=== PATIENT | male | born 1955 | race Caucasian/White ===

== ENCOUNTER 2020-09-27 01:47 | Emergency (ER) | payer MEDICARE, MEDICAID ==
[2020-09-27 02:36] LABS: #Basophils 0.1 thou/uL (0.0-0.2); #Lymphocytes 2.2 thou/uL (1.20-3.40); #Monocytes 0.8 thou/uL (0.11-0.59); #Neutrophils 2.9 thou/uL (1.40-6.50); %Basophils 1.6 % (0.0-1.0); %Lymphocytes 36.7 % (21.0-51.0); %Monocytes 12.9 % (0.0-10.0); %Neutrophils 48.8 % (42.0-75.0); Hemoglobin 13.5 g/dL (14.0-18.0); Mean Corpuscular HGB CONC 31.9 g/dL (32.0-36.0); Mean Corpuscular Hemoglobin 31.1 pg (27.0-31.0); Mean Corpuscular Volume 97.4 fL (78.0-98.0); Mean Platelet Volume 11.6 fL (7.4-10.4); Platelet Count 196 thou/uL (130-400); RBC Distribution Width 12.4 % (11.5-14.5); Red Blood Cell (RBC) Count 4.35 mill/uL (4.70-6.10)
[2020-09-27 03:04] LABS: Bilirubin Negative (Negative); Blood, Urine Small (Negative); Glucose, Urine (Dipstick) Negative (Negative); Ketone, Urine Negative (Negative); Leukocyte Negative (Negative); Nitrite Positive (Negative); Protein, Urine (Dipstick) Negative (Neg-Trace); Specific Gravity, Urine 1.025 (1.005-1.030)
[2020-09-27 03:14] LABS: Clarity Hazy (Clear)
[2020-09-27 03:23] LABS: Bacteria/HPF 3+ HPF (None Seen); Squamous Epithelial 0-3 HPF (0-3); Transitional Epithelial 0-3 HPF (None Seen)
[2020-09-27 03:25] LABS: Anion Gap 17 mmol/L (10-20); BUN (Urea Nitrogen) 22 mg/dL (8.4-25.7); Calc. Creatinine Clearance 0 mL/min (70-130); Carbon Dioxide 26 mmol/L (23-31); Chloride 106 mmol/L (98-107); Potassium 3.7 mmol/L (3.5-5.1); Sodium 145 mmol/L (136-145)
[2020-09-27 03:26] LABS: ALT (SGPT) 95 U/L (8-55); AST (SGOT) 90 U/L (5-34); Albumin 2.9 g/dL (3.4-4.8); Alkaline Phosphatase 113 U/L (40-110); Bilirubin, Total 0.4 mg/dL (0.2-1.2); Calcium 8.6 mg/dL (7.8-10.44); Glucose 80 mg/dL (80-115)
[2020-09-27 03:28] LABS: Globulin 3.3 g/dL (2.4-3.5); Protein, Total 6.2 g/dL (5.8-8.1)
[2020-09-27] MEDS ORDERED: Cefepime 2 GM VIAL ONE (03:28)
[2020-09-27] MEDS ORDERED: Sodium Chloride 0.9% 100 ML BAG ONE (06:48)
[2020-09-27] MEDS ORDERED: Sodium Chloride 0.9% 1,000 ML BAG ONE (06:48)
== END 2020-09-27 08:30 ==
LOC: MADERS 01:47
DX: E86.0 Dehydration (principal); N39.0 Urinary tract infection, site not specified; K21.9 Gastro-esophageal reflux disease without esophagitis; E87.6 Hypokalemia; G30.9 Alzheimer's disease, unspecified; F02.81 Dementia in other diseases classified elsewhere, unspecified severity, with behavioral disturbance; G93.40 Encephalopathy, unspecified; Z86.73 Personal history of transient ischemic attack (TIA), and cerebral infarction without residual deficits; Z79.82 Long term (current) use of aspirin; Z79.899 Other long term (current) drug therapy
CPT/HCPCS: 51701; 71045; 80053; 81003; 81015; 83605; 84484; 85025; 87040; 87077; 87086; 87186; 93005; 96365; J0692; J3490; J7050

== ENCOUNTER 2020-09-30 23:47 | Emergency (ER) | payer MEDICARE, MEDICAID ==
[2020-10-01] MEDS ORDERED: Cefepime 2 GM VIAL ONE (00:11)
[2020-10-01] MEDS ORDERED: Sodium Chloride 0.9% 100 ML ONE (00:11)
[2020-10-01 00:46] LABS: #Lymphocytes 1.8 thou/uL (1.20-3.40); #Monocytes 0.3 thou/uL (0.11-0.59); #Neutrophils 2.6 thou/uL (1.40-6.50); %Lymphocytes 38.2 % (21.0-51.0); %Monocytes 6.7 % (0.0-10.0); %Neutrophils 54.1 % (42.0-75.0); Hemoglobin 12.2 g/dL (14.0-18.0); Mean Corpuscular HGB CONC 33.5 g/dL (32.0-36.0); Mean Corpuscular Hemoglobin 31.9 pg (27.0-31.0); Mean Corpuscular Volume 95.1 fL (78.0-98.0); Mean Platelet Volume 11.5 fL (7.4-10.4); Platelet Count 138 thou/uL (130-400); RBC Distribution Width 12.2 % (11.5-14.5); Red Blood Cell (RBC) Count 3.83 mill/uL (4.70-6.10); White Blood Cell (WBC) Count 4.7 thou/uL (4.8-10.8)
[2020-10-01 00:59] LABS: ALT (SGPT) 110 U/L (8-55); AST (SGOT) 108 U/L (5-34); Albumin 2.4 g/dL (3.4-4.8); Alkaline Phosphatase 96 U/L (40-110); Anion Gap 11 mmol/L (10-20); BUN (Urea Nitrogen) 17 mg/dL (8.4-25.7); Bilirubin, Total 0.3 mg/dL (0.2-1.2); Calc. Creatinine Clearance 0 mL/min (70-130); Calcium 7.3 mg/dL (7.8-10.44); Carbon Dioxide 24 mmol/L (23-31); Chloride 110 mmol/L (98-107); Globulin 2.8 g/dL (2.4-3.5); Glucose 86 mg/dL (80-115); Potassium 3.3 mmol/L (3.5-5.1); Protein, Total 5.2 g/dL (5.8-8.1); Sodium 142 mmol/L (136-145)
[2020-10-01 01:00] LABS: CRP (Inflammatory) 1.13 mg/dL (= or < 0.5)
[2020-10-01] MEDS ORDERED: Sodium Chloride 0.9% 250 ML 250 ML ONE (01:18)
[2020-10-01 01:54] LABS: Bilirubin Negative (Negative); Blood, Urine Trace (Negative); Clarity Clear (Clear); Glucose, Urine (Dipstick) Negative (Negative); Ketone, Urine Negative (Negative); Leukocyte Negative (Negative); Nitrite Negative (Negative); Protein, Urine (Dipstick) Negative (Neg-Trace); Specific Gravity, Urine 1.025 (1.005-1.030); Urobilinogen 0.2 mg/dL (Less than 2)
[2020-10-01 01:55] LABS: RBC/HPF 0-3 HPF (0-3); Squamous Epithelial 0-3 HPF (0-3); WBC/HPF 0-3 HPF (0-3)
== END 2020-10-01 01:33 | disposition short-term general hospital (02) ==
LOC: MADERS 23:47
DX: A41.89 Other specified sepsis (principal); U07.1 COVID-19; R65.21 Severe sepsis with septic shock; J12.82 Pneumonia due to coronavirus disease 2019; N39.0 Urinary tract infection, site not specified; E87.6 Hypokalemia; K21.9 Gastro-esophageal reflux disease without esophagitis; I10 Essential (primary) hypertension; G30.9 Alzheimer's disease, unspecified; G93.40 Encephalopathy, unspecified; I42.9 Cardiomyopathy, unspecified; Z86.73 Personal history of transient ischemic attack (TIA), and cerebral infarction without residual deficits
CPT/HCPCS: 36415; 51702; 71045; 80053; 81003; 81015; 82550; 83605; 84484; 85025; 86140; 87086; 87804; 96365; 96367; 96374; J0692; J1956; J3370; J3490; J7050